=== PATIENT | female | born 1975 | race Caucasian/White ===

== ENCOUNTER 2018-01-10 08:24 | Day surgery (SDC) | payer MEDICAID ==
[2018-01-08 11:23] LABS: BASOPHILS % (AUTO) 0.5 % (0-1); EOSINOPHILS # (AUTO) 0.2 X10'3 (0-0.9); LYMPHOCYTES # (AUTO) 1.1 X10'3 (1.1-4.8); LYMPHOCYTES % (AUTO) 23.3 % (21-51); MEAN CORPUSCULAR HEMOGLOBIN 25.3 PG (27.0-31.0); MEAN CORPUSCULAR HGB CONC 33.1 % (33.0-36.5); MEAN CORPUSCULAR VOLUME 76.6 FL (78-98); MEAN PLATELET VOLUME 8.5 FL (7.4-10.4); MONOCYTES # (AUTO) 0.5 X10'3 (0-0.9); MONOCYTES % (AUTO) 9.8 % (2-12); NEUTROPHILS % (AUTO) 61.4 % (42-75); PRE OP HEMATOCRIT 35.2 % (35.0-45.0); PRE OP HEMOGLOBIN 11.7 g/dL (12.0-16.0); PRE OP PLATELET COUNT 242 X10'3 (140-440)
[2018-01-08 11:31] LABS: HCG SERUM QL NEGATIVE
[2018-01-08 11:35] LABS: ALBUMIN 3.8 G/DL (3.4-5.0); ALBUMIN/GLOBULIN RATIO 1.1 (1.1-1.5); ALKALINE PHOSPHATASE 42 IU/L (46-116); BLOOD UREA NITROGEN 16 MG/DL (7-18); BUN/CREATININE RATIO 20.5 (6.6-38.0); CALCIUM 8.5 MG/DL (8.5-10.1); CHLORIDE 106 MMOL/L (99-107); CREATININE 0.78 MG/DL (0.40-0.90); PRE OP ALT 36 U/L (30-65); PRE OP ANION GAP 8 (8-16); PRE OP AST 18 U/L (10-37); PRE OP BILIRUB, TOTAL 0.3 MG/DL (0.0-1.0); PRE OP GLUCOSE 90 MG/DL (70-104); PRE OP POTASSIUM 4.1 MMOL/L (3.4-5.1); PRE OP SODIUM 141 MMOL/L (135-145); TOTAL CARBON DIOXIDE 26.9 MMOL/L (24-32); TOTAL PROTEIN 7.4 G/DL (6.4-8.2); eGFR 80 ML/MIN
[~2018-01-10] VITALS: Ht 162.6 cm; Wt 77.6 kg
[~2018-01-10 08:24] MED LIST: MULT1TAB74 PO; famotidine 20mg tablet PO ONE; ringers solution, lacted 1,000 ML IV SCH
[2018-01-10 08:40] VITALS: BP 129/71
[2018-01-10] MEDS ORDERED: fentaNYL/PF 50MCG/1 ML 2ML syringe ONE (09:34)
[2018-01-10] MEDS ORDERED: midazolam 2 mg/2 ml injection ONE (09:34)
[2018-01-10] MEDS ORDERED: BUPIVAcaine 0.5% inj/PF 30 ml vial ONE (10:10)
[2018-01-10] MEDS ORDERED: dexamethasone sod phosphate 10mg/ml inj ONE (10:40)
[2018-01-10] MEDS ORDERED: glycopyrrolate 0.2mg/ml inj ONE (10:40)
[2018-01-10] MEDS ORDERED: sevoflurane 250ml liquid IH ONE (10:40)
[2018-01-10] MEDS ORDERED: neostigmine methylsulfate 1 MG/ML 10ml vial ONE (10:40)
[2018-01-10] MEDS ORDERED: LIDOcaine 1%/PF (10mg/ml) 5ml vial ONE (10:45)
[2018-01-10] MEDS ORDERED: ringers solution, lacted 1,000 ML IV SCH (11:04)
[2018-01-10] MEDS ORDERED: morphine 4 MG/ML inj SYRINge IV PRN ×2 (11:05)
[2018-01-10] MEDS ORDERED: HYDROmorphone inj. 0.5 MG/0.5 ML DISP.SYRIN IV PRN ×2 (11:05)
[2018-01-10] MEDS ORDERED: meperidine/PF 50mg/ml syringe IV PRN ×2 (11:05)
[2018-01-10] MEDS ORDERED: fentaNYL/PF 50MCG/1 ML 2ML syringe IV PRN ×2 (11:05)
[2018-01-10] MEDS ORDERED: ondansetron/PF 4mg/2ml inj IV PRN (11:05)
[2018-01-10] MEDS ORDERED: proCHLORperazine 10 MG/2 ml inj IV PRN (11:05)
[2018-01-10 11:35] VITALS: BP 122/76
[2018-01-10] MEDS ORDERED: oxyCODONE/APAP 5-325mg tablet PO ONE ×2 (11:40)
[2018-01-10 11:45] VITALS: BP 111/77
[2018-01-10] MEDS ORDERED: rocuronium 10mg/ml inj IV ONE (11:53)
[2018-01-10] MEDS ORDERED: ketorolac trometh. 30mg/ml inj. ONE (11:53)
[2018-01-10] MEDS ORDERED: ondansetron/PF 4mg/2ml inj ONE (11:53)
[2018-01-10 11:55] VITALS: BP 121/81
[2018-01-10 12:05] VITALS: BP 120/80
[2018-01-10 12:15] VITALS: BP 127/78
== END 2018-01-10 12:25 | disposition home or self-care (01) ==
LOC: PAS 08:24
PROVIDERS: ATTEND Obstetrics & Gynecology
DX: Z30.2 Encounter for sterilization (principal); Z88.2 Allergy status to sulfonamides; Z79.899 Other long term (current) drug therapy
CPT/HCPCS: 36415; 58661; 80053; 84703; 85025; 86870; 86885; 86900; 86901; 86902; 86905; J1100; J1885; J2001; J2250; J2405; J2710; J3010; J3490; J7120; A6250